=== PATIENT | male | born 1960 | race Asian ===

== ENCOUNTER 2018-11-30 02:03 | Emergency (ER) | payer OTHER ==
[~2018-11-30] VITALS: Ht 177.8 cm; Wt 82.0 kg
[2018-11-30 07:30] VITALS: BP 122/77
== END 2018-11-30 09:00 | disposition home or self-care (01) ==
LOC: ER 02:03
DX: S62.634A Displaced fracture of distal phalanx of right ring finger, initial encounter for closed fracture (principal); S61.214A Laceration without foreign body of right ring finger without damage to nail, initial encounter; X58.XXXA Exposure to other specified factors, initial encounter; Y93.89 Activity, other specified; Y92.89 Other specified places as the place of occurrence of the external cause; Y99.8 Other external cause status
CPT/HCPCS: 12001; 73130; 99283